=== PATIENT | male | born 1955 | race Caucasian/White ===

== ENCOUNTER 2016-06-06 20:51 | Emergency (ER) | payer OTHER ==
[2016-06-06] MEDS ORDERED: NS 1,000 ML IV ONE (21:11)
[2016-06-06] MEDS ORDERED: HYDROmorphONE/DILAUDID 1 MG/ML SYR IVP ONE (21:11)
[2016-06-06] MEDS ORDERED: ONDANSETRON 4 MG/2 ML VIAL IVP ONE (21:11)
--- NOTE | 2016-06-06 21:13 | EDPHY ---
H & P Stated Complaint: L Flank pain. Thinks has kidney stone. Time Seen by Provider: 06/06/16 21:06 HPI/ROS: CHIEF COMPLAINT: Left flank and left abdominal pain HISTORY OF PRESENT ILLNESS: 60-year-old male with prior history of nephrolithiasis, no prior history of cardiac or pulmonary disease complaining of acute onset of left flank radiating to his left abdomen pain approximately 6: 00 p.m. this evening with associated nausea. No vomiting. He took an oral hydrocodone which alleviated his symptoms somewhat. Atraumatic. No antecedent symptoms. No recent illness. No testicular or complaints or pain. No chest pain. No dyspnea. No syncope or near syncope. REVIEW OF SYSTEMS: A ten point review of systems was performed and is negative with the exception of the items mentioned in the HPI PAST MEDICAL & SURGICAL HISTORY: nephrolithiasis SOCIAL HISTORY:nonsmoker PHYSICAL EXAM (Prior to examination, patient consented to physical exam, hands were washed and my usual and customary physical exam procedures followed) 1) GENERAL: Well-developed, well-nourished, alert and oriented. Appears uncomfortable 2) HEAD: Normocephalic, atraumatic 3) HEENT: Pupils equal, round, reactive to light bilaterally. Sclera anicteric. 4) NECK: Full range of motion, no meningeal signs. 5) LUNGS: Clear auscultation bilaterally, no wheezes, no rhonchi, no retractions. 6) HEART: Regular rate and rhythm, no murmur, no heave, no gallop. 7) ABDOMEN: No guarding, tender to palpation left upper quadrant no focal tenderness, negative McBurney's, negative Meehan's, negative Rovsing's, negative peritoneal sign, 8) MUSCULOSKELETAL: Moving all extremities, no focal areas of tenderness, no obvious trauma. No peripheral edema or discoloration. 9) BACK: positive left CVA tenderness, no midline vertebral tenderness, no fluctuance, no step-off, no obvious trauma, no visual or palpable abnormality. 10) SKIN: No rash, no petechiae. 11) Psychiatric: Patient is oriented X 3, there is no agitation. DIFFERENTIAL DIAGNOSIS: no particular include but limited to nephrolithiasis, diverticulitis, pyelonephritis, abdominal aortic aneurysm - Personal History Current Tetanus/Diphtheria Vaccine: Unsure Current Tetanus Diphtheria and Acellular Pertussis (TDAP): Unsure - Medical/Surgical History Hx Asthma: No Hx Chronic Respiratory Disease: No Hx Diabetes: No Hx Cardiac Disease: No Hx Renal Disease: Yes Hx Cirrhosis: No Hx Alcoholism: No Hx HIV/AIDS: No Hx Splenectomy or Spleen Trauma: No Other PMH: Kidney stones, [place], SSC to Neck, appy, hypothyroid, high cholesterol - Social History Smoking Status: Never smoked Constitutional: Initial Vital Signs Heart Rate 81 06/06/16 20:52 Respiratory Rate 18 06/06/16 20:52 Blood Pressure 170/107 H 06/06/16 20:52 O2 Sat (%) 97 06/06/16 20:52 O2 Delivery Mode Room Air Allergies/Adverse Reactions: No Known Allergies Allergy (Verified 06/06/16 20:57) Home Medications: Medication Instructions Recorded Aspirin [Baby Aspirin] 81 mg PO DAILY 01/27/12 Levothyroxine- Unknown Dose 01/27/12 Omeprazole [Prilosec 20 mg] 20 mg PO DAILY 01/27/12 Salagen- Unk Dose Tid 01/27/12 Lovastatin 06/06/16 Medical Decision Making - Diagnostics Imaging: CT Abdomen and Pelvis (Renal Stone Study) 2137 hours History: Left Abdominal and flank pain, possible kidney stone. Technique: Multidetector helical CT imaging was performed from the kidneys to the urinary bladder without contrast. Images were reconstructed utilizing thin slices and reviewed in multiple planes. Dose reduction techniques were utilized. CT Abdomen and Pelvis Findings: Kidneys: There is no evidence of renal calculus on either side. There is mild left-sided hydronephrosis with dilated left ureter down to the pelvis where there is a 2 x 1.5 mm left UVJ calculus. No additional urinary tract calculi are identified. There is mild perinephric stranding on the left. There is increased density within the bladder compatible with blood products. The bladder is decompressed. There is no evidence of renal mass. Lung bases: There are a few bands of subsegmental atelectasis left lower lobe. Liver: Normal. Spleen: Normal. Gallbladder and Bile Ducts: There are a few small less than 5 mm calcified gallstones within the gallbladder. There is no gallbladder wall thickening or pericholecystic fluid. There is no biliary ductal dilatation. Pancreas: Normal. Adrenals: Normal. Abdominal Aorta: No aneurysm. Pelvic structures: There are no pelvic masses or lymphadenopathy. Bladder: Decompressed. Increased density is present within the bladder compatible with blood products. Appendix: Nonvisualized. Bowel Loops: Normal. No bowel obstruction, ascites, or significant retroperitoneal lymphadenopathy. Skeletal system: Vertebral body heights are well-maintained. There are no lytic or sclerotic osseous lesions. Impression: 1. Small 2 x 1.5 mm left UVJ calculus with mild to moderate left-sided hydronephrosis. 2. Increased density within decompressed bladder suggestive of blood products within the bladder lumen.. 3. Cholelithiasis. Attention: This CT examination is specifically designed to evaluate patients who are clinically suspected of having acute obstructive uropathy. This examination does not use radiographic contrast , and as such, provides only a limited evaluation of the abdomen, pelvis and retroperitoneum. If there is further clinical suspicion for pathological conditions other than obstructive uropathy, a complete CT evaluation of the abdomen and pelvis utilizing intravenous, oral, and rectal contrast should be considered. Findings were discussed by telephone with Lion Johnson PA-C at 2158 hrs. Dictated By: Eusebio Srinivasan MD Images reviewed by myself ED Course/Re-evaluation: Re-evaluation with serial exams most recently at 10:30 p.m.. Discussed his imaging results with him. At this time this pain is controlled. He has previously seen a urologist in [place], name unknown. I have given him the name of the on-call urologist Dr. Sheikh for follow-up. Patient has sufficient supply hydrocodone at home and declines further analgesia. Usual and customary nephrolithiasis precautions instructions provided. Case discussed with Dr. Galvan in the ER - Data Points Laboratory Results: Laboratory Results 06/06/16 21:10 06/06/16 21:10 06/06/16 06/06/16 06/06/16 22:20 21:10 21:10 WBC 14.43 10^3/uL H 10^3/uL (3.80-9.50) RBC 5.47 10^6/uL 10^6/uL (4.40-6.38) Hgb 17.7 g/dL H g/dL (13.7-17.5) Hct 50.3 % % (40.0-51.0) MCV 92.0 fL fL (81.5-99.8) MCH 32.4 pg pg (27.9-34.1) MCHC 35.2 g/dL g/dL (32.4-36.7) RDW 13.2 % % (11.5-15.2) Plt Count 220 10^3/uL 10^3/uL (150-400) MPV 10.0 fL fL (8.7-11.7) Neut % (Auto) 90.5 % H % (39.3-74.2) Lymph % (Auto) 5.2 % L % (15.0-45.0) Robeson % (Auto) 3.4 % L % (4.5-13.0) Eos % (Auto) 0.3 % L % (0.6-7.6) Baso % (Auto) 0.3 % % (0.3-1.7) Nucleat RBC Rel Count 0.0 % % (0.0-0.2) Absolute Neuts (auto) 13.05 10^3/uL H 10^3/uL (1.70-6.50) Absolute Lymphs (auto) 0.75 10^3/uL L 10^3/uL (1.00-3.00) Absolute Monos (auto) 0.49 10^3/uL 10^3/uL (0.30-0.80) Absolute Eos (auto) 0.04 10^3/uL 10^3/uL (0.03-0.40) Absolute Basos (auto) 0.05 10^3/uL 10^3/uL (0.02-0.10) Absolute Nucleated RBC 0.00 10^3/uL 10^3/uL (0-0.01) Immature Gran % 0.3 % % (0.0-1.1) Immature Gran # 0.05 10^3/uL 10^3/uL (0.00-0.10) Sodium 140 mEq/L mEq/L (134-144) Potassium 4.0 mEq/L mEq/L (3.5-5.2) Chloride 105 mEq/L mEq/L (97-110) Carbon Dioxide 22 mEq/l mEq/l (22-31) Anion Gap 13 mEq/L mEq/L (8-16) BUN 23 mg/dL mg/dL (7-23) Creatinine 1.1 mg/dL mg/dL (0.7-1.3) Estimated GFR > 60 Glucose 129 mg/dL H mg/dL (70-100) Calcium 9.7 mg/dL mg/dL (8.5-10.4) Total Bilirubin 2.4 mg/dL H mg/dL (0.1-1.4) Conjugated Bilirubin 0.4 mg/dL mg/dL (0.0-0.5) Unconjugated Bilirubin 2.0 mg/dL H mg/dL (0.0-1.1) AST 24 IU/L IU/L (17-59) ALT 31 IU/L IU/L (21-72) Alkaline Phosphatase 61 IU/L IU/L (38-126) Total Protein 7.5 g/dL g/dL (6.3-8.2) Albumin 4.8 g/dL g/dL (3.5-5.0) Lipase 76.0 IU/L IU/L (23-300) Urine Color YELLOW Urine Appearance CLEAR Urine pH 5.0 (5.0-7.5) Ur Specific Champion 1.023 (1.002-1.030) Urine Protein NEGATIVE (NEGATIVE) Urine Ketones 2+ H (NEGATIVE) Urine Blood NEGATIVE (NEGATIVE) Urine Nitrate NEGATIVE (NEGATIVE) Urine Bilirubin NEGATIVE (NEGATIVE) Urine Urobilinogen NEGATIVE EU EU (0.2-1.0) Ur Leukocyte Esterase NEGATIVE (NEGATIVE) Urine RBC 1-3 /hpf /hpf (0-3) Urine WBC 1-3 /hpf /hpf (0-3) Ur Epithelial Cells TRACE /lpf /lpf (NONE-1+) Hyaline Casts 1-5 /lpf /lpf (0-1) Urine Mucus 1+ /lpf /lpf (NONE-1+) Urine Glucose NEGATIVE (NEGATIVE) Medications Given: Discontinued Medications Hydromorphone HCl (Dilaudid) 1 mg IVP EDNOW ONE Stop: 06/06/16 21:12 Last Admin: 06/06/16 21:21 Dose: 1 mg Sodium Chloride (Ns) 1,000 mls @ 0 mls/hr IV ONCE ONE PRN Reason: Wide Open Stop: 06/06/16 21:12 Last Admin: 06/06/16 21:21 Dose: 1,000 mls Ondansetron HCl (Zofran) 4 mg IVP EDNOW ONE Stop: 06/06/16 21:12 Last Admin: 06/06/16 21:20 Dose: 4 mg Departure - Departure Disposition: Home, Routine, Self-Care Clinical Impression: Ureterolithiasis Condition: Good Instructions: Ureteral Stones (ED) Additional Instructions: Call 911 if you develop new or worsening symptoms or any other symptoms that concern you Referrals: Nima Sheikh MD [Medical Doctor] - 1-2 days without fail (Dr. Sheikh is a urologist)
[2016-06-06 21:17] LABS: % IMMATURE GRANULYOCYTES 0.3 % (0.0-1.1); ABSOLUTE IMMATURE GRANULOCYTES 0.05 10^3/uL (0.00-0.10); ADD DIFF? NO; ADD MORPH? NO; ADD SCAN? NO; ATYPICAL LYMPHOCYTE FLAG 0 (0-99); FRAGMENT RBC FLAG 0 (0-99); HEMATOCRIT 50.3 % (40.0-51.0); HEMOGLOBIN 17.7 g/dL (13.7-17.5); LEFT SHIFT FLG 0 (0-99); LIPEMIA HEMOLYSIS FLAG 90 (0-99); MEAN CELL HEMOGLOBIN 32.4 pg (27.9-34.1); MEAN CELL HEMOGLOBIN CONCENTR. 35.2 g/dL (32.4-36.7); PLATELET CLUMPS FLAG 0 (0-99); PLATELET COUNT 220 10^3/uL (150-400); RED BLOOD CELL COUNT 5.47 10^6/uL (4.40-6.38); RED CELL DISTRIBUTION WIDTH 13.2 % (11.5-15.2)
[2016-06-06 21:35] LABS: ALANINE AMINOTRANSFERASE 31 IU/L (21-72); ALBUMIN 4.8 g/dL (3.5-5.0); ALKALINE PHOSPHATASE 61 IU/L (38-126); ANION GAP 13 mEq/L (8-16); ASPARTATE AMINOTRANSFERASE 24 IU/L (17-59); BILIRUBIN,TOTAL 2.4 mg/dL (0.1-1.4); BILIRUBIN-CONJUGATED 0.4 mg/dL (0.0-0.5); CALCIUM 9.7 mg/dL (8.5-10.4); CARBON DIOXIDE 22 mEq/l (22-31); CHLORIDE 105 mEq/L (97-110); CREATININE 1.1 mg/dL (0.7-1.3); GLOMERULAR FILTRATION RATE > 60; GLUCOSE 129 mg/dL (70-100); SODIUM 140 mEq/L (134-144); TOTAL PROTEIN 7.5 g/dL (6.3-8.2)
[2016-06-06 22:16] VITALS: RESP 16
[2016-06-06 22:36] LABS: COLOR YELLOW; LEUKOCYTE ESTERASE,URINE NEGATIVE (NEGATIVE); NITRITE,URINE NEGATIVE (NEGATIVE)
[2016-06-06 22:38] LABS: MUCUS 1+ /lpf (NONE-1+)
[2016-06-06] MEDS ORDERED: KETOROLAC 30 MG/1 ML SDV IVP ONE (22:52)
[2016-06-06 23:04] VITALS: BP 155/103; PULSE 90; TEMP 98.1; O2SAT 91
== END 2016-06-06 23:05 | disposition home or self-care (01) ==
DX: N20.1 Calculus of ureter (principal); Z79.82 Long term (current) use of aspirin
CPT/HCPCS: 96374; J1170; J1885; J2405

== ENCOUNTER → 2016-06-13 | Outpatient (CLI) | payer OTHER | LOC: FIMAGING 13:21 | PROVIDERS: ATTEND Family Medicine | DX: I80.3 Phlebitis and thrombophlebitis of lower extremities, unspecified (principal) ==

== ENCOUNTER → 2016-11-01 | Outpatient (CLI) | payer OTHER | LOC: FIMAGING 16:38 | PROVIDERS: ATTEND Family Medicine | DX: M79.661 Pain in right lower leg (principal) ==